=== PATIENT | female | born 1985 | race Caucasian/White ===

== ENCOUNTER → 2016-06-26 | Outpatient (CLI) | payer OTHER ==
--- NOTE | 2016-06-26 14:46 | US ---
EXAMINATION TYPE: US thyroid st tissue head/neck DATE OF EXAM: 06/26/2016 12:20 PM COMPARISON: NONE CLINICAL HISTORY: R59.9 Enlarged Node. palpable area at left submandibular region felt for 1 month, r edish purple skin seen 1.4cm complex vascular lesion seen, possible lymph node versus other etiology IMPRESSION: 1. Findings suggestive for lymph node at the level of the palpable area left submandibular region.
== END | disposition home or self-care (01) ==
LOC: RADUSWWP 12:04
PROVIDERS: ATTEND Family Medicine
DX: R59.9 Enlarged lymph nodes, unspecified (principal)
CPT/HCPCS: 76536

== ENCOUNTER → 2018-01-16 | Outpatient (CLI) | payer OTHER ==
--- NOTE | 2018-01-16 11:26 | XR ---
EXAMINATION TYPE: XR nasal bone DATE OF EXAM: 01/16/2018 COMPARISON: NONE HISTORY: Nasal bone injury with pain and concern for fracture. History of deviated septum repair. TECHNIQUE: 3 views of the nasal bone were obtained. FINDINGS: There is undulation of the nasal septal in the frontal view without discrete fracture. No a cute displaced fracture is seen on the lateral view of the nasal bone. No overlying focal soft tissue swelling. Paranasal sinuses and bony orbits appear unremarkable. No radiopaque foreign body. IMPRESSION: No radiographic evidence of nasal bone fracture.
== END | disposition home or self-care (01) ==
LOC: RADXRMAIN 11:02
PROVIDERS: ATTEND Emergency Medicine
DX: S00.33XA Contusion of nose, initial encounter (principal)
CPT/HCPCS: 70160